=== PATIENT | male | born 1955 ===

== ENCOUNTER 2017-10-23 17:32 | Outpatient (CLI) | payer OTHER | END 2017-10-23 17:47 | disposition home or self-care (01) | LOC: LAB 17:32 | DX: R97.20 Elevated prostate specific antigen [PSA] (principal) ==

== ENCOUNTER 2017-12-10 07:23 | Outpatient (CLI) | payer OTHER | END 2017-12-10 07:34 | disposition home or self-care (01) | LOC: SONOGRAMA 07:23 | DX: R97.20 Elevated prostate specific antigen [PSA] (principal) ==

== ENCOUNTER 2020-12-27 14:23 | Outpatient (CLI) | payer OTHER | END 2020-12-27 14:25 | disposition home or self-care (01) | LOC: LAB 14:23 | PROVIDERS: ATTEND Urology | DX: R97.20 Elevated prostate specific antigen [PSA] (principal) ==

== ENCOUNTER 2021-02-02 08:06 | Outpatient (CLI) | payer OTHER | END 2021-02-02 08:20 | disposition home or self-care (01) | LOC: SONOGRAMA 08:06 | PROVIDERS: ATTEND Urology | DX: D29.1 Benign neoplasm of prostate (principal); R97.20 Elevated prostate specific antigen [PSA] ==